=== PATIENT | female | born 1975 | race Caucasian/White ===

== ENCOUNTER → 2016-09-29 | Outpatient (REF) | payer BC ==
[~2016-09-29] MED LIST: /ESCI20TA PO; /MOM400 PO; CEPALOZ2 PO; DOCU10ELUD PO; IBUPOTC PO; JOLETAB PO; NORC5TAB PO; PANT40TA2 PO; VICO5TAB16 PO; VITA500047 PO
[2016-09-29 13:06] LABS: BLOOD UREA NITROGEN 12 MG/DL (7-18); CREATININE FOR GFR 0.83 MG/DL (0.55-1.02); GLOMERULAR FILTRATION RATE > 60.0 (>58)
[2016-09-29 13:16] LABS: FOLATE 13.2 NG/ML; VITAMIN B12 LEVEL 423 PG/ML
== END ==
LOC: M LABNEURO 12:20
PROVIDERS: ATTEND Psychiatry & Neurology Neurology
DX: R51 Headache (principal); H53.2 Diplopia

== ENCOUNTER → 2018-11-14 | Outpatient (REF) | payer BC ==
[~2018-11-14] MED LIST changes: -/ESCI20TA PO; -/MOM400 PO; -DOCU10ELUD PO; +DOCU5LIQ PO; +LEXA1TAB2 PO; +MILK10SU PO
[2018-11-14 19:01] LABS: C REACTIVE PROTEIN QUANTITATIV 1.2 MG/DL (0.00-0.30); RHEUMATOID FACTOR QUANT 61.6 IU/ML (<15.0); URIC ACID 5.3 MG/DL (2.6-6.0)
[2018-11-14 19:43] LABS: BASO # 0.1 10^3/uL (0.0-0.2); BASO % 0.6 % (0.0-1.0); EOS # 0.4 10^3/uL (0.0-0.50); EOS % 4.8 % (0.0-3.0); HEMATOCRIT 41.6 % (36.0-47.0); HEMOGLOBIN 13.2 g/dl (12.0-15.5); LYMPH # 2.1 10^3/uL (1.5-4.5); LYMPH % 26.2 % (24.0-44.0); MEAN CORPUSCULAR HGB CONC 31.7 g/dl (32.0-36.5); MEAN CORPUSCULAR VOLUME 94.5 fl (80.0-96.0); MONO # 0.8 10^3/uL (0.0-0.8); MONO % 10.3 % (0.0-5.0); NEUTROPHILS # 4.7 10^3/uL (1.8-7.7); PLATELET COUNT, AUTOMATED 192 10^3/uL (150-450); WHITE BLOOD COUNT 8.1 10^3/uL (4.0-10.0)
[2018-11-14 21:13] LABS: ERYTHROCYTE SEDIMENTATION RATE 17 mm/hr (0-20)
[2018-11-20 00:06] LABS: ANTINUCLEAR ANTIBODIES DIRECT Negative (Negative); HLA-B27 Negative (.); Lyme Disease IgG/IgM Antibodie <0.91 ISR (0.00-0.90); Lyme Disease IgM Ab Quantitati <0.80 index (0.00-0.79)
== END ==
LOC: M LABDRAW1 13:30
PROVIDERS: ATTEND Physician Assistant
DX: S93.402D Sprain of unspecified ligament of left ankle, subsequent encounter (principal)

== ENCOUNTER → 2019-06-21 | Outpatient (CLI) | payer BC ==
--- NOTE | 2019-06-21 18:34 | REP ---
MRI RIGHT HIP WITHOUT CONTRAST: 06/21/2019. Comparison: 12/07/2010. Clinical history: Right hip pain. Unilateral hip osteoarthritis. Technique: Coronal T1 and STIR with fat suppressed T2 axial, coronal and sagittal images of the right hip. Findings: Marrow signal in the lower lumbar spine, sacrum, iliac bones, acetabuli, ischia and hips appear unchanged since the previous study. There is a zone of hyperintense T2 hypointense T1 signal in the right sacral ala inferiorly at the SI joint and this is unchanged from the study 8 years ago. The femoral heads, necks, trochanters and proximal femoral shafts along with the acetabula and ischia were unremarkable on the marrow signal. Bladder is nearly empty. Uterus anteverted without gross mass. There is no pelvic free fluid or adenopathy. Small follicles in the ovaries, right larger than left without cyst. No hip joint effusion. However, there is trochanteric tendinobursitis about the greater trochanter at the gluteus medius tendon insertion. The iliopsoas, obturator internus and hamstring tendon insertions were all unremarkable. No pathologic sized inguinal adenopathy or mass nor any hernia in the right inguinal region. Impression: 1. Trochanteric tendinobursitis about the greater trochanter on the right involving the gluteus medius tendon and its insertion. Trace fluid. No hip joint effusion. 2. Some edema in the inferior aspect of the right sacral ala adjacent to the SI joint unchanged. 3. No AVN, fracture or destructive bone lesion. Electronically Signed by Nick Parham MD 06/21/2019 08:03 P
== END ==
LOC: M PLARAD 14:59
PROVIDERS: ATTEND Physician Assistant
DX: M16.11 Unilateral primary osteoarthritis, right hip (principal)

== ENCOUNTER → 2019-08-07 | Outpatient (REF) | payer BC | LOC: M LAB LCGH 12:25 | PROVIDERS: ATTEND Obstetrics & Gynecology | DX: N94.6 Dysmenorrhea, unspecified (principal) ==